=== PATIENT | male | born 1960 | race American Indian/Alaskan Native ===

== ENCOUNTER 2019-02-16 15:41 | Outpatient (CLI) | payer OTHER ==
--- NOTE | 2019-02-16 18:26 | XRay Report ---
PROCEDURE: XR KNEE BILAT 1-2V TECHNIQUE: 2 views bilateral knees. HISTORY: DISABILITY EXAM COMPARISONS: None FINDINGS: Right knee: Slight lateral subluxation of the tibia relative to the femur. Spurring of the patella. Small joint e ffusion. No acute fracture or malalignment Left knee: Prominent narrowing of the medial compartment. Patellar spurring. Small joint effusion. No acute frac ture or malalignment IMPRESSION: Right knee: Slight lateral subluxation of the right tibia. Finding may imply ligamentous laxity or injury. Mild a rthritis.. Small joint effusion Left knee: Advanced arthritic change medial compartment Small joint effusion This document is electronically signed by Timmy Keith MD., Feb 16 2019 06:24:34 PM ET
--- NOTE | 2019-02-16 18:28 | XRay Report ---
PROCEDURE: XR FOOT BILAT 2V TECHNIQUE: Two-view bilateral feet HISTORY: DISABILITY EXAM COMPARISONS: None FINDINGS: Right foot: No acute fracture or malalignment. Tiny calcaneal spur. Joint space is maintained. No significant deg enerative change. Soft tissues are unremarkable. Left foot: No acute fracture or malalignment. Joint space maintained. No significant degenerative change. Small calcaneal spur. IMPRESSION: No acute fracture or malalignment Small bilateral calcaneal spurs Joint space is maintained. No significant arthritic change.. This document is electronically signed by Timmy Keith MD., Feb 16 2019 06:26:24 PM ET
== END 2019-02-16 15:42 | disposition home or self-care (01) ==
LOC: XRAY 15:41
PROVIDERS: ATTEND Internal Medicine
DX: Z02.71 Encounter for disability determination (principal); M77.32 Calcaneal spur, left foot; M77.31 Calcaneal spur, right foot; M15.3 Secondary multiple arthritis; M25.462 Effusion, left knee; M25.461 Effusion, right knee